=== PATIENT | male | born 1960 ===

== ENCOUNTER 2017-06-11 09:49 | Outpatient (CLI) | payer BC ==
--- NOTE | 2017-06-11 16:35 | Diagnostic Imaging Report ---
Indication: History of hydronephrosis. Flank pain. Technique: Continuous helical transaxial imaging of the abdomen and pelvis was obtained from the lung bases to the pubic symphysis during intravenous contrast administration. Coronal 2-D reformats were also obtained. Study obtained in a Siemens sensation [address] Total Dose length Product (DLP): [address] Dose Index Volume (CTDIvol): 0.15, 19, 8, 81, 19, 19.4, 19.4 mGy Comparison: None available. CT and ultrasound done 2005 were archived and not available for comparison Findings: Noncontrast images show no evidence of renal stones. There is no hydronephrosis. There are small bubbles multiple parapelvic cysts within both kidneys. Some parapelvic cysts are commonly mistaken for hydronephrosis on renal ultrasound or a noncontrast CT. The ureters demonstrate a normal course and caliber. There is good symmetric concentration of contrast material within both kidneys on arterial venous and delayed phases. There is appropriate symmetric excretion of contrast within the collecting systems bilaterally. The urinary bladder is relatively nondistended and unremarkable. Mild prostate calcification is present. There are several tiny hypodensities within the liver too small adequately characterize although these are probably small cysts. The spleen shows a single calcific focus. The pancreas and gallbladder are unremarkable. There is no biliary ductal dilatation. There is no adrenal mass. There are diverticula noted within the sigmoid colon. There is no evidence of diverticulitis. The appendix is not the findings seen. There are no secondary signs of acute appendicitis. There is no free fluid. There is mild narrowing of L5-S1 disc and suggestion of neural foraminal stenosis at this level. Impression: There is no hydronephrosis, nephrolithiasis or evidence of obstructive nephropathy. Multiple bilateral parapelvic renal cysts are demonstrated. Calcified splenic granuloma. Small hiatal hernia. Tiny hypodensities in the liver too small adequately characterize although these are most likely cystic on a statistical basis. Diverticulosis of the sigmoid colon. Degenerative disease L5-S1. The CT scanner at [facility] is accredited by the [employer] and the scans are performed using protocols designed to limit radiation exposure to as low as reasonably achievable to attain images of sufficient resolution adequate for diagnostic evaluation.
== END 2017-06-11 12:49 | disposition home or self-care (01) ==
LOC: CAT 09:49
DX: R10.9 Unspecified abdominal pain (principal); L92.8 Other granulomatous disorders of the skin and subcutaneous tissue; K44.9 Diaphragmatic hernia without obstruction or gangrene; K57.90 Diverticulosis of intestine, part unspecified, without perforation or abscess without bleeding; M51.37 Other intervertebral disc degeneration, lumbosacral region; N28.1 Cyst of kidney, acquired
CPT/HCPCS: 74178; Q9967